=== PATIENT | female | born 1955 | race Caucasian/White ===

== ENCOUNTER → 2016-11-05 | Outpatient (CLI) | payer BC ==
--- NOTE | 2016-11-05 12:32 | REPMRS ---
Patient History The patient states she had a clinical breast exam in 10/30 Patient is postmenopausal. No known family history of cancer. Digital Woman Screen Mammo: November 05, 2016 - Exam #: [id number] Bilateral CC and MLO view(s) were taken. Technologist: Savannah Zaman, Technologist Prior study comparison: October 10, 2015, digital woman screen mammo performed at [facility]. July 16, 2014, digital woman screen mammo performed at [facility]. July 03, 2013, digital woman screen mammo performed at [facility]. FINDINGS: There are scattered fibroglandular densities. There is a moderate amount of residual fibroglandular tissue which is fairly symmetric. There is no interval development of dominant mass, architectural distortion, or clustered microcalcification typical of malignancy. There has been no change in the appearance of the mammogram from the prior studies. ASSESSMENT: BI-RADS/ACR category 1 mammogram. Negative. Recommendation Routine screening mammogram of both breasts in 1 year (for women over age 40). This mammogram was interpreted with the aid of an FDA-approved computer-aided dectection system. Electronically Signed By: Davon Petit MD 11/05/16 [id number]
== END ==
LOC: M WHC 10:45
PROVIDERS: ATTEND Nurse Practitioner Family
DX: Z12.31 Encounter for screening mammogram for malignant neoplasm of breast (principal)

== ENCOUNTER 2017-03-10 19:21 | Emergency (ER) | payer BC ==
[~2017-03-10] VITALS: Ht 170.2 cm; Wt 68.9 kg
[2017-03-10 19:22] VITALS: BP 167/87
[2017-03-10] MEDS ORDERED: CALC600T57 PO (19:31)
[2017-03-10] MEDS ORDERED: MULT1TAB10 PO (19:31)
[2017-03-10] MEDS ORDERED: BIOFTAB PO (19:31)
[2017-03-10] MEDS ORDERED: LORA10CA PO (19:31)
[2017-03-10] MEDS ORDERED: ASPI81TA85 PO (19:31)
[2017-03-10] MEDS ORDERED: DOXYCYCLINE HYCLATE 100 MG TAB PO ONE (20:30)
== END 2017-03-10 20:38 | disposition home or self-care (01) ==
LOC: M ED 20:14
DX: S41.152A Open bite of left upper arm, initial encounter (principal); W57.XXXA Bitten or stung by nonvenomous insect and other nonvenomous arthropods, initial encounter; Y92.89 Other specified places as the place of occurrence of the external cause; Y93.89 Activity, other specified; Y99.9 Unspecified external cause status; F17.200 Nicotine dependence, unspecified, uncomplicated

== ENCOUNTER → 2018-02-10 | Outpatient (REF) | payer BC | LOC: M SFHCWAGY 10:31 | DX: Z12.4 Encounter for screening for malignant neoplasm of cervix (principal) | CPT/HCPCS: 86803 ==

== ENCOUNTER → 2018-02-10 | Outpatient (CLI) | payer BC | LOC: M WHC 09:59 | DX: Z12.31 Encounter for screening mammogram for malignant neoplasm of breast (principal) | CPT/HCPCS: 77067 ==

== ENCOUNTER → 2019-06-22 | Outpatient (CLI) | payer BC ==
[~2019-06-22] MED LIST: ASPI81TA85 PO; BIOFTAB PO; CALC600T57 PO; LORA10CA PO; MULT1TAB10 PO
--- NOTE | 2019-06-22 15:49 | REPMRS ---
Patient History The patient states she had a clinical breast exam in 06/2019. Patient is postmenopausal. No known family history of cancer. No Hormone Replacement Therapy 3D TOMOSYNTHESIS WAS PERFORMED. The [facility] lifetime risk for breast cancer is 5.4%. Digital Woman Screen Mammo: June 22, 2019 - Exam #: [id number] Bilateral CC and MLO view(s) were taken. Technologist: Emilia Wynn, Technologist Prior study comparison: February 10, 2018, digital woman screen mammo performed at [facility]. November 05, 2016, digital woman screen mammo performed at [facility]. FINDINGS: The breast tissue is heterogeneously dense. This may lower the sensitivity of mammography. There has been no change in the appearance of the mammogram from the prior studies. There is a moderate amount of residual fibroglandular tissue which is fairly symmetric. There is no interval development of dominant mass, areas of architectural distortion, or clustered microcalcification typical of malignancy. Assessment: BI-RADS/ACR category 1 mammogram. Negative Mammogram. Recommendation Routine screening mammogram in 1 year (for women over age 40). This mammogram was interpreted with the aid of an FDA-approved computer-aided dectection system. Electronically Signed By: Fuad Sandra MD 06/22/19 [id number]
== END ==
LOC: M WHC 13:59
PROVIDERS: ATTEND Nurse Practitioner Family
DX: Z12.31 Encounter for screening mammogram for malignant neoplasm of breast (principal); Z78.0 Asymptomatic menopausal state

== ENCOUNTER → 2020-07-11 | Outpatient (CLI) | payer OTHER ==
[~2020-07-11] MED LIST changes: -ASPI81TA85 PO; +ASPI81TA86 PO
--- NOTE | 2020-07-11 16:20 | REPMRS ---
Patient History The patient states she had a clinical breast exam in 2019. No known family history of cancer. No Hormone Replacement Therapy 3D TOMOSYNTHESIS WAS PERFORMED. The [facility] lifetime risk for breast cancer is 5.2%. SHERRI Orr Digital Woman Screen Mammo: July 11, 2020 - Exam #: [id number] Bilateral CC and MLO view(s) were taken. Technologist: Ioana Lozada, Technologist Prior study comparison: June 22, 2019, bilateral digital woman screen mammo performed at [facility]. February 10, 2018, digital woman screen mammo performed at [facility]. FINDINGS: The breast tissue is heterogeneously dense. This may lower the sensitivity of mammography. There has been no change in the appearance of the mammogram from the prior studies. There is a moderate amount of residual fibroglandular tissue which is fairly symmetric. There is no interval development of dominant mass, areas of architectural distortion, or clustered microcalcification typical of malignancy. Assessment: BI-RADS/ACR category 1 mammogram. Negative Mammogram. Recommendation Routine screening mammogram in 1 year (for women over age 40). This mammogram was interpreted with the aid of an FDA-approved computer-aided dectection system. Electronically Signed By: Fuad Sandra MD 07/11/20 [id number]
== END ==
LOC: M WHC 14:50
PROVIDERS: ATTEND Nurse Practitioner Family
DX: Z12.31 Encounter for screening mammogram for malignant neoplasm of breast (principal)

== ENCOUNTER → 2021-08-28 | Outpatient (REF) | payer OTHER | LOC: M SFHCWAGY 18:35 | PROVIDERS: ATTEND Nurse Practitioner Women's Health | DX: Z12.4 Encounter for screening for malignant neoplasm of cervix (principal) ==

== ENCOUNTER → 2021-08-28 | Outpatient (CLI) | payer OTHER ==
--- NOTE | 2021-08-28 18:06 | REPMRS ---
Patient History The patient states she had a clinical breast exam in August 2021. No known family history of cancer. No Hormone Replacement Therapy Patient states no breast complaints today. Patient has signed MRS History Sheet. Digital Woman Screen Mammo: August 28, 2021 - Exam #: [id number] Bilateral CC and MLO view(s) were taken. Technologist: Savannah Zaman, Technologist Prior study comparison: July 11, 2020, bilateral digital woman screen mammo performed at [facility]. June 22, 2019, bilateral digital woman screen mammo performed at [facility]. FINDINGS: The breast tissue is heterogeneously dense. This may lower the sensitivity of mammography. Screening. Digital screening (2D) mammography was performed bilaterally in the CC and MLO projections. Additionally, breast tomosynthesis (3D mammography) was performed bilaterally in the CC and MLO projections. Todays exam was compared to the prior exam/exams. By history, the patient has no complaints of a palpable breast abnormality or other significant breast complaints. The [employer]para volumetric breast density category is C, the breasts are heterogenously dense which may obscure small masses. The breasts are unchanged in size and shape. There are no patricia-soft tissue densities or spiculated masses. There is no internal architectural distortion. There are no suspicious patricia-calcific clusters. Skin thickening or nipple retraction is not present. IMPRESSION: BI-RADS Category 2- Benign Findings. There is no evidence of malignant alteration of the breasts. Followup examination recommended in one year. The lifetime Tyrer-Cuzick score is 4.9% This mammogram was read with the assistance of [employer]an FDA approved computer aided detection system for mammography. Due to the density of the breasts, MRI/whole breast screening ultrasound is warranted. Negative x-ray reports should not delay surgical consultation if a dominant or clinically suspicious mass is present. Not all breast cancers can be identified by mammography. Therefore, we recommend that you continue to perform regular breast self-examination and physical examination and then promptly contact your physician of any concerns or changes. Adenosis and dense breasts may obscure an underlying neoplasm. No significant changes when compared with prior studies. Assessment: BI-RADS/ACR category 2 mammogram. Benign Findings. Recommendation Routine screening mammogram of both breasts in 1 year. Electronically Signed By: Lance Morris MD 08/28/21 [id number]
== END ==
LOC: M WHC 14:29
PROVIDERS: ATTEND Nurse Practitioner Women's Health
DX: Z12.31 Encounter for screening mammogram for malignant neoplasm of breast (principal)